=== PATIENT | female | born 1970 | race Caucasian/White ===

== ENCOUNTER 2022-02-25 10:30 | Outpatient (RCR) | payer OTHER | END 2022-02-26 | disposition still patient (30) | LOC: WSC | DX: M16.12 Unilateral primary osteoarthritis, left hip (principal); M35.9 Systemic involvement of connective tissue, unspecified ==

== ENCOUNTER 2022-03-13 10:30 | Outpatient (RCR) | payer OTHER | END 2022-03-28 | disposition home or self-care (01) | LOC: WSPT | DX: M16.12 Unilateral primary osteoarthritis, left hip (principal); M35.9 Systemic involvement of connective tissue, unspecified ==

== ENCOUNTER 2022-04-17 09:00 | Outpatient (RCR) | payer OTHER | END 2022-04-28 | disposition home or self-care (01) | LOC: WSPT | DX: M16.12 Unilateral primary osteoarthritis, left hip (principal); M35.9 Systemic involvement of connective tissue, unspecified ==

== ENCOUNTER → 2022-05-06 | Outpatient (CLI) | payer OTHER | LOC: COL.RAD 08:55 | DX: D47.2 Monoclonal gammopathy (principal) ==

== ENCOUNTER → 2022-05-14 | Outpatient (CLI) | payer OTHER | LOC: COL.RAD 07:06 | DX: R10.9 Unspecified abdominal pain (principal) | CPT/HCPCS: Q9967 ==